=== PATIENT | female | born 1955 | race African-American/Black ===

== ENCOUNTER 2017-08-21 17:18 | Emergency (ER) | payer OTHER ==
[2017-08-21 17:51] VITALS: BP 115/63; PULSE 98; TEMP 99.1; BMI 19.5
--- NOTE | 2017-08-21 18:22 | PDOC ---
History of Present Illness - General Chief Complaint: Respiratory Stated Complaint: COUGHING/S.O.B Time Seen by Provider: 08/21/17 17:54 History Source: Patient, Care Provider (niece) Exam Limitations: No Limitations - History of Present Illness Initial Comments: 08/21/17 18:18 Patient is a [61-year-old female, no significant medical history except for acid reflux on omeprazole presents with cough, generalized aches, pain under bilateral breasts with coughing. Reports symptoms for one week one week ago also had fever which has since resolved. Denies any chest pain at rest, no shortness of breath, moist cough noted. Patient is ambulatory, no acute distress.] Allergies: No known allergies Family History: Non-contributory Social History: Denies smoking, alcohol use, or IVDU Vital signs on arrival are [notable for pulse of 98.] Review of Systems GENERAL/CONSTITUTIONAL: [Tactile fever, resolved. No weakness. No weight change. ] HEAD, EYES, EARS, NOSE AND THROAT: [No change in vision. No ear pain or discharge. No sore throat. ] CARDIOVASCULAR: [No chest pain or shortness of breath.] RESPIRATORY: [Moist, nonproductive cough, no wheezing, or hemoptysis.] GASTROINTESTINAL: [No nausea, vomiting, diarrhea or constipation. No rectal bleeding.] GENITOURINARY: [No dysuria, frequency, or change in urination.] MUSCULOSKELETAL: [No joint or muscle swelling or pain. No neck or back pain.] SKIN AND BREASTS: [No rash or easy bruising. No breast pain, pain under breasts with coughing] NEUROLOGIC: [No headache, vertigo, loss of consciousness, or loss of sensation.] PSYCHIATRIC: [No depression or anxiety.] ENDOCRINE: [No increased thirst. No abnormal weight change.] HEMATOLOGIC/LYMPHATIC: [No anemia, easy bleeding, or history of blood clots.] ALLERGIC/IMMUNOLOGIC: [No hives or skin allergy. No latex allergy.] Physical Exam: GENERAL: [The patient is awake, alert, and fully oriented, in no acute distress. ] HEAD: [Normal with no signs of trauma.] EYES: [Pupils equal, round and reactive to light, extraocular movements intact, sclera anicteric, conjunctiva clear.] ENT: [Ears normal, nares patent, oropharynx clear without exudates. Moist mucous membranes. No uvula deviation] NECK: [Normal range of motion, supple without lymphadenopathy, JVD, or masses.] LUNGS: [Bilateral rhonchi at bases, no wheezing no crackles.] HEART: [Regular rate and rhythm, normal S1 and S2 without murmur, rub or gallop. ] ABDOMEN: [Soft, nontender, normoactive bowel sounds. No guarding, no rebound. No masses. No bruising or abrasions] MUSCULOSKELETAL: [Normal range of motion, no edema. No clubbing or cyanosis. No cords, erythema, or tenderness. No CVA Tenderness with fist palpation.] NEUROLOGICAL: [Cranial nerves II through XII grossly intact. Normal speech, normal gait.] SKIN: [Warm, Dry, normal turgor, no rashes or lesions noted.] 08/21/17 18:19 Past History - Past Medical History Allergies/Adverse Reactions: Allergies Allergy/AdvReac Type Severity Reaction Status Date / Time No Known Allergies Allergy Verified 08/21/17 17:47 Home Medications: Ambulatory Orders Azithromycin [Zithromax 250mg Tablets -] 250 mg PO UTDICT #6 tab 08/21/17 Esomeprazole Magnesium [Nexium 24Hr] 20 mg PO ASDIR 08/21/17 - Suicide/Smoking/Psychosocial Hx Smoking History: Never smoked *Physical Exam - Vital Signs Last Vital Signs Temp Pulse Resp BP Pulse Ox 99.1 F 98 H 18 115/63 99 08/21/17 17:47 08/21/17 17:47 08/21/17 17:47 08/21/17 17:47 08/21/17 17:47 ED Treatment Course - RADIOLOGY Radiology Studies Ordered: Category Date Time Status CHEST PA & LAT [RAD] Stat Radiology 08/21/17 18:16 Ordered Medical Decision Making - Medical Decision Making 08/21/17 18:22 A/P: Patient with resolving influenza-type illness with persistent cough for perform chest x-ray to rule out pneumonia 08/21/17 19:18 Wet read of Xray is negative for acute cardiopulmonary disease will discharge patient home on Zithromax, follow up with PMD in two days. I discussed the physical exam findings, ancillary test results and final diagnoses with the patient. I answered all of the patient's questions. The patient was satisfied with the care received and felt comfortable with the discharge plan and treatment plan. The patient will call to arrange follow-up and will return to the Emergency Department with any new, persisting or worsening symptoms. 08/23/17 10:05 *DC/Admit/Observation/Transfer Diagnosis at time of Disposition: Cough, Influenza-like illness - Discharge Dispostion Disposition: HOME Condition at time of disposition: Stable Admit: No - Prescriptions Prescriptions: Azithromycin [Zithromax 250mg Tablets -] 250 mg PO UTDICT #6 tab - Referrals Referrals: ON STAFF,NOT [Primary Care Provider] - - Patient Instructions Printed Discharge Instructions: DI for Acute Bronchitis Additional Instructions: Keep head of bed elevated 45 when sleeping Motrin for fever greater than 101, please make sure to take her medication for reflux Followup in the primary care doctor's office in 2 days for evaluation. If any respiratory distress, increased cough, inability to drink, increased wheezing please return immediately to emergency department. - Post Discharge Activity
[2017-08-21] MEDS ORDERED: IBUPROFEN 400 MG TABLET (FP) PO ONE ×2 (19:11→19:24)
== END 2017-08-21 19:56 | disposition home or self-care (01) ==
LOC: JERFT 17:18
DX: J11.1 Influenza due to unidentified influenza virus with other respiratory manifestations (principal)
CPT/HCPCS: 71046-TC-FY; 99281-25